=== PATIENT | female | born 1985 | race Caucasian/White ===

== ENCOUNTER 2017-01-05 10:05 | Emergency (ER) | payer OTHER, SELFPAY ==
--- NOTE | 2017-01-05 13:03 | CT ---
CT OF THE SINUSES WITHOUT CONTRAST: Date: 01/05/17 COMPARISON: None. HISTORY: Left facial swelling for 2 days. TECHNIQUE: Multiple contiguous axial images were obtained in a CT of the face/sinuses without contrast. Coronal reformats were performed. FINDINGS: Mucosal thickening is seen in both maxillary sinuses. The other paranasal sinuses are well aerated. The right frontal sinus is hypoplastic. There is soft tissue swelling of the left cheek. No focal fl uid collection is seen on this limited noncontrast examination. The globes and retrobulbar soft tissues are unremarkable. Visualized intracranial structures are unr emarkable. No facial fractures are seen. There is periapical lucency seen surrounding some of the maxillary mol ars bilaterally. The right maxillary ostiomeatal unit is patent. The left maxillary ostiomeatal unit is narrowed by the mucosal thickening in the left maxillary sinus. IMPRESSION: 1. Left facial soft tissue swelling without obvious fluid collection. 2. Lucency surrounding some of the molars suggests periodontal disease. No odontogenic abscess is a ppreciated on this exam. POS: FLIP
== END 2017-01-05 12:15 | disposition home or self-care (01) ==
LOC: MADERS 10:05
DX: K05.30 Chronic periodontitis, unspecified (principal); J32.0 Chronic maxillary sinusitis; J45.909 Unspecified asthma, uncomplicated; F41.9 Anxiety disorder, unspecified; F32.9 Major depressive disorder, single episode, unspecified; F17.210 Nicotine dependence, cigarettes, uncomplicated

== ENCOUNTER 2019-04-13 01:59 | Emergency (ER) | payer OTHER | END 2019-04-13 02:44 | disposition home or self-care (01) | LOC: MADERS 01:59 | DX: J02.9 Acute pharyngitis, unspecified (principal); J45.909 Unspecified asthma, uncomplicated; F41.9 Anxiety disorder, unspecified; F32.9 Major depressive disorder, single episode, unspecified; F17.210 Nicotine dependence, cigarettes, uncomplicated | CPT/HCPCS: 87081; 87430; 87804; 99283 ==

== ENCOUNTER 2020-01-27 07:02 | Emergency (ER) | payer OTHER, SELFPAY ==
--- NOTE | 2020-01-27 08:08 | RAD ---
Portable frontal chest radiograph: 01/27/2020 COMPARISON: 10/02/2005 HISTORY: Cough with fever FINDINGS: Lungs are clear. Heart and mediastinal contours appear within normal limits. IMPRESSION: No acute findings.
[2020-01-28 13:11] LABS: SARS-CoV-2 MS2 Positive; SARS-CoV-2 N Gene Negative; SARS-CoV-2 S Gene Negative; SARS-CoV-2 by NAA Not Detected (NotDetected); SARS-CoV-2 orf1ab Negative
== END 2020-01-27 08:26 | disposition home or self-care (01) ==
LOC: MADERS 07:02
DX: J18.9 Pneumonia, unspecified organism (principal); J45.909 Unspecified asthma, uncomplicated; F41.9 Anxiety disorder, unspecified; F32.9 Major depressive disorder, single episode, unspecified; F17.210 Nicotine dependence, cigarettes, uncomplicated; Z20.828 Contact with and (suspected) exposure to other viral communicable diseases; Z79.899 Other long term (current) drug therapy
CPT/HCPCS: 71045; 87635; U0003

== ENCOUNTER 2020-06-29 08:10 | Emergency (ER) | payer SELFPAY ==
[2020-06-29] MEDS ORDERED: Ondansetron PF 4 MG/2 ML Vial ONE (08:43)
[2020-06-29] MEDS ORDERED: Sodium Chloride 0.9% 1,000 ML ONE (08:43)
[2020-06-29] MEDS ORDERED: Fentanyl 100 MCG/2 ML VIAL ONE (08:43)
[2020-06-29 09:06] LABS: #Basophils 0.1 thou/uL (0.0-0.2); #Eosinphils 0.3 thou/uL (0.0-0.7); #Lymphocytes 2.2 thou/uL (1.20-3.40); #Monocytes 0.9 thou/uL (0.11-0.59); #Neutrophils 13.3 thou/uL (1.40-6.50); %Basophils 0.5 % (0.0-1.0); %Eosinophils 1.9 % (0.0-10.0); %Lymphocytes 12.9 % (21.0-51.0); %Monocytes 5.1 % (0.0-10.0); %Neutrophils 79.6 % (42.0-75.0); Hemoglobin 14.5 g/dL (12.0-16.0); Mean Corpuscular Volume 91.1 fL (78.0-98.0); Mean Platelet Volume 7.5 fL (7.4-10.4); Platelet Count 258 thou/uL (130-400); RBC Distribution Width 11.7 % (11.5-14.5); Red Blood Cell (RBC) Count 4.83 mill/uL (4.20-5.40); White Blood Cell (WBC) Count 16.7 thou/uL (4.8-10.8)
[2020-06-29 09:11] LABS: Pregnancy Test - Urine (BHCG) Negative (Negative); Pregu Control Background? CLEAR/WHITE (CLR/WHITE); Pregu Control Bar Appear? YES (CONTROL BAR); Specific Gravity 1.026 (1.002-1.036)
[2020-06-29 09:17] LABS: Bilirubin Negative (Negative); Blood, Urine Small (Negative); Clarity Clear (Clear); Glucose, Urine (Dipstick) Negative (Negative); Ketone, Urine Negative (Negative); Leukocyte Negative (Negative); Nitrite Negative (Negative); Protein, Urine (Dipstick) Negative (Neg-Trace); Specific Gravity, Urine 1.025 (1.005-1.030); pH, Urine 5.5 (5.0-9.0)
[2020-06-29 09:18] LABS: RBC/HPF 0-3 HPF (0-3)
[2020-06-29 09:19] LABS: Bacteria/HPF 1+ HPF (None Seen)
[2020-06-29 09:25] LABS: ALT (SGPT) 13 U/L (8-55); AST (SGOT) 10 U/L (5-34); Alkaline Phosphatase 65 U/L (40-110); Anion Gap 13 mmol/L (10-20); BUN (Urea Nitrogen) 14 mg/dL (7.0-18.7); Bilirubin, Total 0.4 mg/dL (0.2-1.2); Calc. Creatinine Clearance 0 mL/min (70-130); Calcium 8.6 mg/dL (7.8-10.44); Carbon Dioxide 22 mmol/L (22-29); Chloride 108 mmol/L (98-107); Globulin 2.6 g/dL (2.4-3.5); Glucose 109 mg/dL (70-105); Potassium 4.1 mmol/L (3.5-5.1); Protein, Total 6.6 g/dL (6.0-8.3); Sodium 139 mmol/L (136-145)
--- NOTE | 2020-06-29 09:49 | CT ---
EXAM: CT ABDOMEN AND PELVIS HISTORY: Abdominal pain COMPARISON: None. Procedure: Multiple contiguous axial images were obtained and a CT of the abdomen and pelvis with IV contrast. C oronal reformats were performed. FINDINGS: Lower Chest: Indeterminate solid nodule in the left lower lobe measuring 0.4 cm Vessels: Normal caliber aorta. No periaortic fat stranding Heart: Normal heart size Abdomen: Portal vein:Patent Gallbladder: No calcified gallstones. Normal caliber wall. Liver: within normal limits. Pancreas: within normal limits. Spleen: within normal limits. Adrenals: within normal limits. Kidneys: Symmetric enhancement. No obstructive uropathy. Peritoneum: No ascites or free air, no fluid collection. Bowel: Limited evaluation by the lack of oral contrast administration. There are mildly prominent flu id-filled small bowel loops. Developing ileus or obstructive process cannot be entirely excluded. Ileocecal junction is normal. Normal caliber appendix. Scattered fecal material in a nondistended, no ndilated colon. Mucosal prominence of the left hemicolon is presumed to be due to inadequate distention. Mesentery and Retroperitoneum: No enlarged mesenteric or retroperitoneal lymph nodes. Abdominal Wall: within normal limits. Pelvis: Reproductive Organs: Reproductive organs are unremarkable. Multiple bilateral ovarian follicles are i dentified. Pelvis: No mass, lymphadenopathy, free air or free fluid. Bladder: within normal limits. Bones: within normal limits. IMPRESSION: 1. Normal caliber appendix. 2. Slightly prominent fluid-filled small bowel loops. Evaluate for a developing obstructive process v ersus ileus. Etiology may be due to enteritis. Transcribed Date/Time: 06/29/2020 9:53 AM
[2020-06-29] MEDS ORDERED: Dicyclomine 10 MG CAP ONE (10:33)
[2020-06-29] MEDS ORDERED: Iopamidol 370 76% 100 ML VIAL ONE (11:20)
== END 2020-06-29 10:49 | disposition home or self-care (01) ==
LOC: MADERS 08:10
DX: R10.30 Lower abdominal pain, unspecified (principal); R10.813 Right lower quadrant abdominal tenderness; Z71.6 Tobacco abuse counseling; J45.909 Unspecified asthma, uncomplicated; F17.210 Nicotine dependence, cigarettes, uncomplicated; R00.0 Tachycardia, unspecified
CPT/HCPCS: 74177; 80053; 81003; 81015; 81025; 83605; 85025; 87086; 96374; 96375; 99406; J2405; J3010; J7050; Q9967

== ENCOUNTER 2021-01-24 19:17 | Emergency (ER) | payer SELFPAY, OTHER ==
[2021-01-24] MEDS ORDERED: traMADol HCl 50 MG TAB ONE (20:23)
[2021-01-24] MEDS ORDERED: Clindamycin 150 MG CAP ONE (20:24)
== END 2021-01-24 20:32 | disposition home or self-care (01) ==
LOC: MADERS 19:17
DX: K04.7 Periapical abscess without sinus (principal); K02.9 Dental caries, unspecified; K03.81 Cracked tooth; J45.909 Unspecified asthma, uncomplicated; F17.210 Nicotine dependence, cigarettes, uncomplicated
CPT/HCPCS: 99282

== ENCOUNTER 2022-06-24 01:38 | Emergency (ER) | payer SELFPAY, OTHER ==
[2022-06-24] MEDS ORDERED: AMOXicillin 250 MG CAP ONE (02:14)
== END 2022-06-24 02:14 | disposition home or self-care (01) ==
LOC: MADERS 01:38
DX: K08.89 Other specified disorders of teeth and supporting structures (principal); F17.210 Nicotine dependence, cigarettes, uncomplicated
CPT/HCPCS: 99283

== ENCOUNTER 2022-12-03 22:31 | Emergency (ER) | payer OTHER, SELFPAY ==
[2022-12-03] MEDS ORDERED: Acetaminophen 500 MG TAB ONE (23:07)
[2022-12-03] MEDS ORDERED: Dexamethasone 10 MG/ML VIAL ONE (23:07)
[2022-12-03] MEDS ORDERED: Dexamethasone 4 MG TAB ONE (23:08)
== END 2022-12-03 23:53 | disposition home or self-care (01) ==
LOC: MADERS 22:31
DX: J02.9 Acute pharyngitis, unspecified (principal); K02.9 Dental caries, unspecified; K05.10 Chronic gingivitis, plaque induced; F17.210 Nicotine dependence, cigarettes, uncomplicated
CPT/HCPCS: 87081; 87430; 99283; J1100; J8540

== ENCOUNTER 2023-10-29 22:55 | Emergency (ER) | payer OTHER ==
[2023-10-29] MEDS ORDERED: Cyclobenzaprine 10 MG TAB ONE (23:25)
== END 2023-10-29 23:27 | disposition home or self-care (01) ==
LOC: MADERS 22:55
DX: M54.10 Radiculopathy, site unspecified (principal); F17.210 Nicotine dependence, cigarettes, uncomplicated; V89.2XXA Person injured in unspecified motor-vehicle accident, traffic, initial encounter
CPT/HCPCS: 99283

== ENCOUNTER 2024-02-28 01:02 | Emergency (ER) | payer OTHER ==
[2024-02-28] MEDS ORDERED: predniSONE 20 MG TAB ONE (01:34)
[2024-02-28] MEDS ORDERED: Acetaminophen 500 MG TAB ONE (01:34)
== END 2024-02-28 01:49 | disposition home or self-care (01) ==
LOC: MADERS 01:02
DX: M54.12 Radiculopathy, cervical region (principal); F17.210 Nicotine dependence, cigarettes, uncomplicated
CPT/HCPCS: 99283; J7512

== ENCOUNTER 2024-03-20 10:18 | Emergency (ER) | payer OTHER ==
[2024-03-20] MEDS ORDERED: Acetaminophen 500 MG TAB ONE (11:13)
[2024-03-20 11:17] LABS: ALT (SGPT) 12 U/L (8-55); AST (SGOT) 11 U/L (5-34); Albumin 3.7 g/dL (3.5-5.0); Alkaline Phosphatase 53 U/L (40-110); Anion Gap 13 mmol/L (10-20); BUN (Urea Nitrogen) 9 mg/dL (7.0-18.7); Bilirubin, Total 0.2 mg/dL (0.2-1.2); Calc. Creatinine Clearance 0 mL/min (70-130); Calcium 8.7 mg/dL (7.8-10.44); Carbon Dioxide 22 mmol/L (22-29); Chloride 109 mmol/L (98-107); Estimated GFR 113; Globulin 2.9 g/dL (2.4-3.5); Glucose 90 mg/dL (70-105); Potassium 3.9 mmol/L (3.5-5.1); Protein, Total 6.6 g/dL (6.0-8.3); Sodium 140 mmol/L (136-145)
[2024-03-20 11:20] LABS: Band 1 % (5-11); Eosinophils 3 % (0-10); Hematocrit 37.3 % (36.0-47.0); Hemoglobin 12.4 g/dL (12.0-16.0); Hypochromia SLIGHT = 6-15 cells (100X) (0-5/hpf); Lymphocytes 11 % (21-51); MDiff Complete? YES; Mean Corpuscular HGB CONC 33.3 g/dL (32.0-36.0); Mean Corpuscular Hemoglobin 30.8 pg (27.0-31.0); Mean Corpuscular Volume 92.7 fl (78.0-98.0); Mean Platelet Volume 7.5 fL (7.4-10.4); Monocytes 7 % (0-10); Neutrophil 67 % (42-75); Platelet Adequacy Comment Appears Adequate; Platelet Count 261 10x3/uL (130-400); RBC Distribution Width 11.7 % (11.5-14.5); Red Blood Cell (RBC) Count 4.03 mill/uL (4.20-5.40); White Blood Cell (WBC) Count 8.9 10x3/uL (4.8-10.8)
== END 2024-03-20 11:58 | disposition short-term general hospital (02) ==
LOC: MADERS 10:18
DX: O20.9 Hemorrhage in early pregnancy, unspecified (principal); F17.210 Nicotine dependence, cigarettes, uncomplicated; Z3A.08 8 weeks gestation of pregnancy
CPT/HCPCS: 36415; 80053; 84702; 85025; 86900; 86901; 99284

== ENCOUNTER 2024-06-07 06:13 | Emergency (ER) | payer OTHER | END 2024-06-07 06:45 | disposition home or self-care (01) | LOC: MADERS 06:13 | DX: J06.9 Acute upper respiratory infection, unspecified (principal); F17.210 Nicotine dependence, cigarettes, uncomplicated | CPT/HCPCS: 99283 ==